=== PATIENT | female | born 1995 | race Caucasian/White ===

== ENCOUNTER 2021-09-18 22:24 | Emergency (ER) | payer OTHER ==
[~2021-09-18] VITALS: Ht 170.2 cm; Wt 65.8 kg
--- NOTE | 2021-09-18 22:46 | NUR ---
Dr Mercer in room for RIGOBERTO
--- NOTE | 2021-09-18 22:46 | NUR ---
Patient's sister at bedside
[2021-09-18] MEDS ORDERED: BRIV10TA PO (22:47)
--- NOTE | 2021-09-18 22:59 | NUR ---
Patient is now a/ox3, NAD noted. Patient is able to walk with steady gait
--- NOTE | 2021-09-18 23:07 | NUR ---
Patient does not wish to proceed with medical care recommended by Dr. Mercer. Patient given information related to possible complications, up to and including , which could occur as a result of leaving the hospital at this time. Patient and Patient's sister verbalizes understanding of risks involved due to leaving against medical advice. Patient has signed AMA form. Patient is accompanied by her sister. Patient is a/ox4, NAD noted, able to walk with steady gait.
[2021-09-18 23:10] VITALS: BP 126/87
== END 2021-09-18 23:10 | disposition left against medical advice (07) ==
LOC: ER 22:27
DX: G40.909 Epilepsy, unspecified, not intractable, without status epilepticus (principal); Z53.29 Procedure and treatment not carried out because of patient's decision for other reasons
CPT/HCPCS: A4663